=== PATIENT | female | born 1960 | race Caucasian/White ===

== ENCOUNTER → 2023-06-06 07:17 | Outpatient (REF) | payer OTHER, SELFPAY ==
[2023-06-06 10:24] LABS: Vitamin D, 25-OH*** 24.3 ng/mL (30-80)
[2023-06-06 12:19] LABS: Erythrocyte Sed Rate 25 mm/hour (0-20)
== END ==
LOC: HWLAB 07:17
PROVIDERS: ATTENDING PHYSICIAN Internal Medicine Rheumatology; FAMILY PHYSICIAN Family Medicine
DX: E55.9 Vitamin D deficiency, unspecified (principal); M16.0 Bilateral primary osteoarthritis of hip; M25.50 Pain in unspecified joint; M35.3 Polymyalgia rheumatica; M47.812 Spondylosis without myelopathy or radiculopathy, cervical region; M47.814 Spondylosis without myelopathy or radiculopathy, thoracic region; M47.816 Spondylosis without myelopathy or radiculopathy, lumbar region; M79.7 Fibromyalgia; M81.0 Age-related osteoporosis without current pathological fracture; R42 Dizziness and giddiness; Z51.81 Encounter for therapeutic drug level monitoring; Z86.69 Personal history of other diseases of the nervous system and sense organs
CPT/HCPCS: 36415; 82306; 85652; 86140

== ENCOUNTER → 2023-10-05 11:28 | Outpatient (REF) | payer OTHER, SELFPAY ==
[2023-10-05 15:46] LABS: % Basophils 0.7 % (0-2); % Eosinophils 2.3 % (0-6); % Immature Granulocytes 0.4 % (0-0.5); % Lymphocytes 28.5 % (20.5-51.1); % Monocytes 5.9 % (1.7-9.3); % Neutrophils 62.2 % (42.2-75.2); Absolute Basophils 0.1 10^3/uL (0-0.2); Absolute Eosinophils 0.2 10^3/uL (0-0.7); Absolute Lymphocytes 2.6 10^3/uL (1.2-3.4); Absolute Monocytes 0.5 10^3/uL (0.1-0.6); Absolute Neutrophils 5.7 10^3/uL (1.4-6.5); Hematocrit 36.2 % (37.0-47.0); Hemoglobin 13.1 g/dL (12.0-16.0); Mean Corp Hgb Conc. 36.2 g/dL (33.0-37.0); Mean Corpuscular Hgb 31.2 pg (27.0-31.0); Mean Corpuscular Volume 86.2 fL (81.0-99.0); Mean Platelet Volume 9.8 fL (7.4-10.4); Nucleated Red Blood Cells % 0 %; Platelet Count 357 10^3/uL (130-400); Red Cell Dist. Width 13.3 % (11.5-14.5); White Blood Cell Count 9.2 10^3/uL (4.8-10.8)
[2023-10-05 15:46] LABS: Urine Albumin Negative (Neg - Trace); Urine Bilirubin Negative (Negative); Urine Character Clear (Clear); Urine Color Yellow; Urine Glucose Negative (Negative); Urine Ketone Negative (Negative); Urine Leukocyte Trace (Negative); Urine Nitrite Negative (Negative); Urine Occult Blood Negative (Negative); Urine Urobilinogen Negative (Neg - 1+); Urine pH 6.5 (5.0-9.0)
[2023-10-05 15:57] LABS: Urine Bacteria Few (Negative); Urine Red Blood Cell 0-2 /HPF (0-2); Urine White Cell 0-2 /HPF (0-5)
[2023-10-05 16:00] LABS: Erythrocyte Sed Rate 29 mm/hour (0-20)
[2023-10-05 16:02] LABS: ALT (SGPT) 24 U/L (0-35); AST (SGOT) 26 U/L (14-36); Alkaline Phosphatase 82 U/L (38-126); Blood Urea Nitrogen 12 mg/dl (7-17); Calcium 9.8 mg/dl (8.4-10.2); Carbon Dioxide 31 mmol/L (22-30); Chloride 94 mmol/L (98-107); Glucose 115 mg/dl (70-99); HDL Cholesterol 43 mg/dl; LDL Cholesterol, Calculated 99 mg/dl; Potassium 2.9 mmol/L (3.5-5.1); Sodium 133 mmol/L (135-145); Total Bilirubin 0.5 mg/dl (0.2-1.3); Total Cholesterol 178 mg/dl (50-199); Total Protein 6.8 g/dl (6.3-8.2); Triglyceride 180 mg/dl (10-149); Very Low Density Lipoprotein 36 mg/dl (0-30); eGFR > 60.00
[2023-10-05 16:41] LABS: TSH Reflex To Free T4 0.03 uIU/ml (0.47-4.68)
[2023-10-05 17:10] LABS: Free T4 2.13 ng/dl (0.78-2.19)
== END ==
LOC: HWLAB 11:28
PROVIDERS: ATTENDING PHYSICIAN Internal Medicine Rheumatology; FAMILY PHYSICIAN Family Medicine
DX: E55.9 Vitamin D deficiency, unspecified (principal); M16.0 Bilateral primary osteoarthritis of hip; M25.50 Pain in unspecified joint; M35.3 Polymyalgia rheumatica; M47.812 Spondylosis without myelopathy or radiculopathy, cervical region; M47.814 Spondylosis without myelopathy or radiculopathy, thoracic region; M47.816 Spondylosis without myelopathy or radiculopathy, lumbar region; M79.7 Fibromyalgia; M81.0 Age-related osteoporosis without current pathological fracture; R42 Dizziness and giddiness; Z51.81 Encounter for therapeutic drug level monitoring; Z86.69 Personal history of other diseases of the nervous system and sense organs; E03.8 Other specified hypothyroidism
CPT/HCPCS: 36415; 80053; 80061; 81003; 81015; 84439; 84443; 85025; 85652; 86140

== ENCOUNTER 2024-06-14 17:11 | Emergency (ER) | payer OTHER, SELFPAY ==
[2024-06-14 17:19] VITALS: BP 169/93
[2024-06-14 17:58] LABS: Hematocrit 38.8 % (37.0-47.0); Hemoglobin 13.6 g/dL (12.0-16.0); Mean Corp Hgb Conc. 35.1 g/dL (33.0-37.0); Mean Corpuscular Hgb 30.7 pg (27.0-31.0); Mean Corpuscular Volume 87.6 fL (81.0-99.0); Mean Platelet Volume 9.1 fL (7.4-10.4); Platelet Count 296 10^3/uL (130-400); Red Blood Cell Count 4.43 10^6/uL (4.20-5.40); Red Cell Dist. Width 13.1 % (11.5-14.5); White Blood Cell Count 9.5 10^3/uL (4.8-10.8)
[2024-06-14 18:09] LABS: ALT (SGPT) 26 U/L (0-35); AST (SGOT) 23 U/L (14-36); Albumin 4.6 g/dl (3.5-5.0); Alkaline Phosphatase 80 U/L (38-126); Blood Urea Nitrogen 13 mg/dl (7-17); Calcium 10.3 mg/dl (8.4-10.2); Carbon Dioxide 30 mmol/L (22-30); Chloride 94 mmol/L (98-107); Glucose 103 mg/dl (70-99); Potassium 3.1 mmol/L (3.5-5.1); Sodium 134 mmol/L (135-145); Total Bilirubin 0.6 mg/dl (0.2-1.3); Total Protein 7.3 g/dl (6.3-8.2); eGFR > 60.00
[2024-06-14 18:20] LABS: Troponin I < 0.012 ng/ml
[2024-06-14 18:21] LABS: COVID-19 Antigen Negative (Negative)
[2024-06-14 18:44] LABS: % Eosinophils 2.6 % (0-6); % Immature Granulocytes 0.5 % (0-0.5); % Lymphocytes 31.7 % (20.5-51.1); % Monocytes 6.4 % (1.7-9.3); % Neutrophils 57.8 % (42.2-75.2); Absolute Basophils 0.1 10^3/uL (0-0.2); Absolute Eosinophils 0.3 10^3/uL (0-0.7); Absolute Immature Granulocytes 0.1 10^3/uL (0-0.05); Absolute Monocytes 0.6 10^3/uL (0.1-0.6); Absolute Neutrophils 5.5 10^3/uL (1.4-6.5); Nucleated Red Blood Cells % 0 %
--- NOTE | 2024-06-14 20:33 | ED.GENMED ---
History of Present Illness
General
Chief Complaint: Chest Pain
Time Seen by Provider: 06/14/24 20:32
History of Present Illness
History of Present Illness:
TIME OF INITIAL ENCOUNTER: 8:35 PM
HPI: Over the past 7 to 10 days, the patient's been having intermittent chest discomfort. It is not necessarily related to exertion. The pain does worsen when she moves the torso and was extremely tender to touch when I palpated the anterior chest
wall. She has some vague shortness of breath as well. She had been coughing and her PMD placed her on a Z-Johnathan recently. She continues to smoke.
EXAM:
GENERAL: Well appearing in no distress, elevated BMI
HEENT: Moist oral mucosa
CARDIOVASCULAR: No murmurs, normal heart rate, regular rhythm, exquisite anterior chest wall tenderness most prominent when she was flexing forward at the thoracolumbar spine
PULMONARY: No respiratory distress, breath sounds are slightly equally decreased, no wheeze
ABDOMEN: Soft with no peritoneal signs, no tenderness
NEUROLOGIC: Excellent strength all extremities, no coordination deficits
PSYCHIATRIC: Appropriate mental status, normal insight and judgement
EXTREMITIES: Nontender, no edema, moves all extremities equally
SKIN: No rash, no lesions
NUMBER AND COMPLEXITY OF PROBLEMS ADDRESSED AT THE ENCOUNTER
� Chronic conditions affecting care: Migraines, high blood pressure, GERD, diverticular disease, thyroid disease
� Acute Exacerbation and/or Progression of Chronic Illness: This is an acute problem
� Differential Diagnosis includes: Costochondritis, pneumothorax not seen on chest x-ray, nonspecific chest wall pain, muscle strain, doubt aortic pathology�radial pulses are equal and very reproducible symptom
AMOUNT AND/OR COMPLEXITY OF DATA TO BE REVIEWED AND ANALYZED
� I performed an independent evaluation of and my interpretation is:
EKG: Sinus 87, leftward axis deviation, nonspecific ST abnormality
CT:
X-rays: Chest x-ray unremarkable
Laboratory Studies: CBC normal, potassium 3.1, troponin less than 0.012
Other:
� Review of other/old records: The patient was admitted here in 2018 with diverticulitis. The patient had normal coronaries by cath with Dr. Jiménez in 2018.
� Clinical information was obtained by an independent historian: I spoke to daughter at bedside
� Prescriptions/Medications Considered but not given:
� Further testing considered but not performed:
RISK OF COMPLICATIONS AND/OR MORBIDITY OR MORTALITY OF PATIENT MANAGEMENT
� Social determinants of health affecting care: Lives at home
� Discussion with other providers:
� Escalation of care including admission/observation vs risk of discharge considered: We talked about the possibly of costochondritis. She states that at times she feels better with taking aspirin. She is already on Celebrex.
Therefore, recommend against additional NSAIDs with exception of giving a dose of Toradol now. She also has a history of fibromyalgia which may be a contributing factor for her pain. There is a slight change in the lateral leads on her ST segments
therefore I recommend that she follows up with Dr. Payne.
ANY OTHER UPDATES:
Past History
Past History
ED Past Medical History: HTN, Hypothyroidism and Other (Diverticulitis)
ED Past Surgical History: and Gynecological (tubal ligation)
Social History
Tobacco: Former smoker
Alcohol: Occasional
Personal:
Living: with family
Employment: Employed
Family History
Family History: CAD and Other (Diverticulitis)
Phy Exam
Physical Exam
Physical Exam:
See HPI
Scores
Heart Score for Chest Pain Patients
STEMI patient?: Not applicable
Course
Orders/Labs/Results
Orders:
Orders
06/14/24 17:12
Electrocardiogram (*1) Urgent
Reason for Study: Chest Pain
EKG- Treatment ONCE
06/14/24 17:30
CXR2 [CR Chest - 2 Views ] Urgent
Comment:
Reason For Exam: cough/chest pain
06/14/24 17:41
CMP [Comprehensive Metabolic Panel] Urgent
COVID-19 Antigen Urgent
Source: Nasal Swab
Complete Blood Count/With Diff Urgent
Troponin I Urgent
Influenza A+B Rapid Molecular Urgent
DAVI Source: Nasal Swab
Specimen Description:
06/14/24 20:52
Ketorolac [Toradol] 30 mg IM NOW STA
Abnormal Lab Results
06/14/24
17:41
Abs Immat Gran (auto) 0.1 H 10^3/uL
(0-0.05)
Sodium 134 L mmol/L
(135-145)
Potassium 3.1 L mmol/L
(3.5-5.1)
Chloride 94 L mmol/L
(98-107)
Glucose 103 H mg/dl
(70-99)
Calcium 10.3 H mg/dl
(8.4-10.2)
06/14/24 17:41
06/14/24 17:41
Vital Signs
Initial and Last Documented VS:
Initial Vital Signs
Temp Pulse Resp BP Pulse Ox
36.7 C 85 18 169/93 96
06/14/24 17:19 06/14/24 17:19 06/14/24 17:19 06/14/24 17:19 06/14/24 17:19
Last Documented Vital Signs
Temp Pulse Resp BP Pulse Ox
36.7 C 85 18 169/93 96
06/14/24 17:19 06/14/24 17:19 06/14/24 17:19 06/14/24 17:19 06/14/24 17:19
*Critical Care Note
Total Time (30-74mins, 75-104mins- exclusive of procedures): Not Applicable
ED Attending Note
-
Portions of this chart may have been created with voice recognition software.� Occasional wrong word or��sound alike� substitutions may have occurred due to the inherent limitations of voice recognition software.
Discharge Plan
Departure
Prescriptions:
No Action
omeprazole [Prilosec] 20 MG capsule,delayed release(DR/EC)
20 mg PO DAILYPRN PRN (Reason: acid reflux)
hyoscyamine sulfate 0.125 MG tablet, sublingual
0.125 mg PO QIDPRN PRN (Reason: stomach spasm)
montelukast 10 MG tablet
10 mg PO DAILY PRN (Reason: allergies)
chlorthalidone 25 MG tablet
25 mg PO DAILY PRN (Reason: elevated BP)
famotidine 40 MG tablet
40 mg PO QPM
levothyroxine 150 MCG tablet
150 mcg PO DAILY
hydrocodone-acetaminophen 1 TABLET tablet
1 - 2 tab PO Q4HPRN PRN (Reason: pain) Qty: 30 0RF
Interventions
Interventions:
*Risk Screen - Suicide Last Done: 06/14/24 17:19
*General Assessment Last Done: 06/14/24 20:42
*Neglect/Abuse Screening Last Done: 06/14/24 17:19
*ED- Fall Risk Assessment Last Done: 06/14/24 20:42
*ED COVID-19 Vaccine History Last Done: 06/14/24 17:19
ED- Cardiac Assessment Last Done: 06/14/24 20:42
Discharge Date and Time
Print Language: LEBANESE
[2024-06-14 20:42] VITALS: BMI 37.9
[2024-06-14] MEDS: TORADOL 30 MG IM (20:56)
[2024-06-14] MEDS: KLOR-CON 40 MEQ PO (21:03)
== END 2024-06-14 21:41 | disposition home or self-care (01) ==
LOC: EMR 17:11
PROVIDERS: Emergency Medicine; EMERGENCY PHYSICIAN Emergency Medicine; FAMILY PHYSICIAN Family Medicine
DX: R07.89 Other chest pain (principal); E03.9 Hypothyroidism, unspecified; I10 Essential (primary) hypertension; M79.7 Fibromyalgia; Z82.49 Family history of ischemic heart disease and other diseases of the circulatory system; Z83.79 Family history of other diseases of the digestive system; Z87.891 Personal history of nicotine dependence; Z98.51 Tubal ligation status
CPT/HCPCS: 99283; 96372; 71046; 80053; 84484; 85025; 87502; 87811; 93005